=== PATIENT | female | born 1985 | race Caucasian/White ===

== ENCOUNTER 2023-07-27 19:21 | Inpatient (IN) | payer BC, SELFPAY ==
[2023-07-27 19:26] VITALS: BMI 31.4
[2023-07-27 19:54] VITALS: BP 131/79
[2023-07-27] MEDS: LR 1000 IV (20:10)
[2023-07-27 20:17] LABS: % Basophils 0.3 % (0-2); % Eosinophils 1.2 % (0-6); % Immature Granulocytes 0.5 % (0-0.5); % Monocytes 6.4 % (1.7-9.3); % Neutrophils 70.6 % (42.2-75.2); Absolute Eosinophils 0.1 10^3/uL (0-0.7); Absolute Immature Granulocytes 0.1 10^3/uL (0-0.05); Absolute Lymphocytes 2.1 10^3/uL (1.2-3.4); Absolute Monocytes 0.6 10^3/uL (0.1-0.6); Absolute Neutrophils 7.1 10^3/uL (1.4-6.5); Mean Corp Hgb Conc. 36.4 g/dL (33.0-37.0); Mean Corpuscular Hgb 32.3 pg (27.0-31.0); Mean Corpuscular Volume 88.9 fL (81.0-99.0); Nucleated Red Blood Cells % 0 %; Platelet Count 208 10^3/uL (130-400); Red Blood Cell Count 3.71 10^6/uL (4.20-5.40); Red Cell Dist. Width 14.1 % (11.5-14.5)
[2023-07-27] MEDS: CYTOTEC 25 MICROGRAM VAG (20:37)
[2023-07-27] MEDS: BENADRYL 50 MG PO (22:45)
[2023-07-28] MEDS: CYTOTEC 50 MICROGRAM PO (00:31)
[2023-07-28] MEDS: FLUSH (NSS) 1 FLUSH IV (03:16)
[2023-07-28] MEDS: MORPHINE SULFATE 2 MG IV (03:16)
[2023-07-28] MEDS: LR 1000 IV ×2 (04:35→13:59)
[2023-07-28] MEDS: SUBLIMAZE 100 MCG EPIDURAL (04:43)
[2023-07-28] MEDS: FENTANYL/BUPIVACAINE 100 EPIDURAL ×3 (04:44→19:36)
[2023-07-28] MEDS: CYTOTEC PO ×2 (05:04→21:07)
[2023-07-28] MEDS: SYNTHROID 50 MCG PO (06:58)
[2023-07-28] MEDS: PITOCIN 30 UNITS/NSS 500 ML IV (13:56)
[2023-07-28] MEDS: TUMS 2 TABLET PO (21:09)
[2023-07-28] MEDS: ANCEF 10 IV (23:15)
[2023-07-28] MEDS: BICITRA 30 ML PO (23:15)
[2023-07-28] MEDS: TYLENOL 1000 MG PO (23:15)
[2023-07-29] MEDS: TORADOL 15 MG IV ×4 (06:07→23:39)
[2023-07-29] MEDS: SYNTHROID 50 MCG PO (06:14)
--- NOTE | 2023-07-29 07:19 | W.PN.ANS.POP ---
Anesthesia Post Operative
- Anesthesia Post Op Note
Vital Signs Stable-See Nursing Note: Yes
Airway Patent: Yes
Adequate Pain Control: Yes
Change in Mental Status: No
Current Postoperative Nausea & Vomiting: No
Anesthesia Complications: No
General Anesthetic Recall: No
Unplanned Admission: No
Post Op Hydration Adequate: Yes
[2023-07-29] MEDS: BENADRYL 25 MG PO (20:42)
[2023-07-29] MEDS: FLUSH (NSS) 3 FLUSH IV (23:39)
[2023-07-30 04:15] LABS: Hemoglobin 9.8 g/dL (12.0-16.0); Mean Corpuscular Hgb 31.8 pg (27.0-31.0); Mean Corpuscular Volume 90.9 fL (81.0-99.0); Platelet Count 180 10^3/uL (130-400); Red Blood Cell Count 3.08 10^6/uL (4.20-5.40); Red Cell Dist. Width 14.3 % (11.5-14.5); White Blood Cell Count 13.5 10^3/uL (4.8-10.8)
[2023-07-30] MEDS: SYNTHROID 50 MCG PO (06:08)
[2023-07-30] MEDS: TYLENOL 650 MG PO ×3 (08:07→20:14)
[2023-07-30] MEDS: MOTRIN 600 MG PO ×3 (08:07→20:14)
[2023-07-31] MEDS: TYLENOL 650 MG PO ×2 (04:13→10:27)
[2023-07-31] MEDS: MOTRIN 600 MG PO ×2 (04:13→10:27)
[2023-07-31] MEDS: SYNTHROID 50 MCG PO (06:36)
--- NOTE | 2023-07-31 13:02 | W.DS.TRANS ---
DC Summary - Server
-
Discharge Instructions:
Discharge Diagnosis/Procedures primary cs
Instructions:
Stand-Alone Forms: LDRP Delivery
Changes to Home Medications: No
Discharge Medications:
DC Medications w/original date entered in [facility]
levothyroxine 50 mcg tablet (Synthroid) 50 mcg PO DAILY 07/27/23
prenat.vits,ulices,soe-xele-wyktm 1 tab PO DAILY 07/27/23
ibuprofen 600 mg tablet 600 mg PO Q6HPRN PRN cramps #90 tabs 07/31/23
Home Medication Changes
Pending Results: No
Total time spent discharging patient (in min): 20
[2023-07-31 17:18] LABS: Syphilis/T. pallidum Ab Reflex Negative (Negative)
== END 2023-07-31 14:44 | disposition home or self-care (01) | DRG 788 ==
LOC: LDRP 19:21
PROVIDERS: Obstetrics & Gynecology; ADMITTING PHYSICIAN Obstetrics & Gynecology; FAMILY PHYSICIAN Family Medicine
PROC: 10D00Z1 Extraction of Products of Conception, Low, Open Approach (ICD-10-PCS; 2023-07-29)
PROC: 3E0DXGC Introduction of Other Therapeutic Substance into Mouth and Pharynx, External Approach (ICD-10-PCS; 2023-07-29)
PROC: 3E033VJ Introduction of Other Hormone into Peripheral Vein, Percutaneous Approach (ICD-10-PCS; 2023-07-29)
DX: O48.0 Post-term pregnancy (principal); O62.0 Primary inadequate contractions; O99.284 Endocrine, nutritional and metabolic diseases complicating childbirth; E03.9 Hypothyroidism, unspecified; O69.1XX0 Labor and delivery complicated by cord around neck, with compression, not applicable or unspecified; O76 Abnormality in fetal heart rate and rhythm complicating labor and delivery; Z37.0 Single live birth; Z3A.40 40 weeks gestation of pregnancy
CPT/HCPCS: 88307; 36415; 85025; 85027; 86780; 86850; 86900; 86901

== ENCOUNTER → 2023-11-09 14:06 | Outpatient (REF) | payer BC, SELFPAY | LOC: HWRAD 14:06 | PROVIDERS: ATTENDING PHYSICIAN Obstetrics & Gynecology; FAMILY PHYSICIAN Family Medicine | DX: R19.00 Intra-abdominal and pelvic swelling, mass and lump, unspecified site (principal) | CPT/HCPCS: 76705 ==

== ENCOUNTER → 2025-04-26 15:08 | Outpatient (REF) | payer BC, SELFPAY | LOC: PNTC 15:08 | PROVIDERS: ATTENDING PHYSICIAN Obstetrics & Gynecology | DX: O09.813 Supervision of pregnancy resulting from assisted reproductive technology, third trimester (principal); O09.893 Supervision of other high risk pregnancies, third trimester; O09.823 Supervision of pregnancy with history of in utero procedure during previous pregnancy, third trimester; O09.523 Supervision of elderly multigravida, third trimester | CPT/HCPCS: 59025; 76815 ==

== ENCOUNTER → 2025-05-03 15:10 | Outpatient (REF) | payer BC, SELFPAY | LOC: PNTC 15:10 | PROVIDERS: ATTENDING PHYSICIAN Obstetrics & Gynecology | DX: O09.523 Supervision of elderly multigravida, third trimester (principal); O09.893 Supervision of other high risk pregnancies, third trimester; O09.823 Supervision of pregnancy with history of in utero procedure during previous pregnancy, third trimester; O09.813 Supervision of pregnancy resulting from assisted reproductive technology, third trimester | CPT/HCPCS: 59025; 76815 ==

== ENCOUNTER → 2025-05-10 15:03 | Outpatient (REF) | payer BC, SELFPAY | LOC: PNTC 15:03 | PROVIDERS: ATTENDING PHYSICIAN Obstetrics & Gynecology | DX: O09.523 Supervision of elderly multigravida, third trimester (principal); Z31.83 Encounter for assisted reproductive fertility procedure cycle | CPT/HCPCS: 59025; 76816 ==

== ENCOUNTER → 2025-05-17 13:23 | Outpatient (REF) | payer BC, SELFPAY | LOC: PNTC 13:23 | PROVIDERS: ATTENDING PHYSICIAN Obstetrics & Gynecology | DX: O09.813 Supervision of pregnancy resulting from assisted reproductive technology, third trimester (principal); O09.523 Supervision of elderly multigravida, third trimester | CPT/HCPCS: 59025; 76815 ==